=== PATIENT | female | born 1990 | race Caucasian/White ===

== ENCOUNTER 2016-06-27 23:45 | Emergency (ER) | payer BC, MEDICAID ==
[2016-06-28] MEDS ORDERED: BACIGUENT PACKET TP ONE (00:11)
[2016-06-28] MEDS ORDERED: Adacel Vial IM ONE ×2 (00:11→00:23)
[2016-06-28] MEDS ORDERED: XYLOCAINE 1% HCL 20 ML MDV IJ ONE (00:18)
--- NOTE | 2016-06-28 00:19 | ERPHSYRPT ---
- History of Present Illness Time Seen by Provider: 06/28/16 00:05 Source: patient Exam Limitations: no limitations Patient Subjective Stated Complaint: PT STS YESTERDAY NOTICED INCREASED SWELLING AND DISCOMFORT LT MIDDLE FINGER. STS TODAY STARTED DRAINING PUS. STS HAD SOME KEFLEX AT HOME SO SHE STARTED TAKING IT. STS TONIGHT SHE NOTICED SOME RED STREAKING UP THE LT ARM AND ALSO A LUMP AROUND LT COLLAR BONE AREA. Triage Nursing Assessment: PT ALERT, ORIENTED, ANSWERS ALL QUESTIONS APPROPRIATELY. SKIN P/W/D, RESPS NON-LABORED. PT AMBULATORY, GAIT STEADY. REDNESS WITH LOCALIZED SWELLING NOTED AROUND NAIL BED LT MIDDLE FINGER. LIGHT RED STREAKING NOTED UP LT ARM. SWELLING OF POSSIBLE LYMPH NODE NOTED AT LT COLLAR BONE AREA. Physician History: This is a 26-year-old white female arrives with complaint of erythema and pain in her left third finger symptoms for 2 days she states that she feels like she noticed erythema running up her dorsal left wrist she has some pain in her medial anterior elbow and states she has some tenderness in her left superior clavicular area. Past medical history:, Kidney stones Past surgical history includes 2 Occurred: days ago (2 days) Method of Injury: unknown Quality: constant Severity of Pain-Max: moderate Severity of Pain-Current: moderate Extremities Pain Location: 3rd finger: left Modifying Factors: Improves With: nothing Associated Symptoms: other (red streak on dorsal hand earlier today (left) pain in the left supraclavicular node, left medial elbow) Allergies/Adverse Reactions: No Known Drug Allergies Allergy (Unverified 06/28/16 00:16) Home Medications: Control 1 tab 06/28/16 [History] Hx Tetanus, Diphtheria Vaccination/Date Given: Yes (WITHIN LAST 10 YEARS) Hx Influenza Vaccination/Date Given: No Hx Pneumococcal Vaccination/Date Given: No Immunizations Up to Date: No - Review of Systems Constitutional: No Fever, No Chills Eyes: No Symptoms Ears, Nose, & Throat: No Symptoms Respiratory: No Cough, No Dyspnea Cardiac: No Chest Pain, No Edema, No Syncope Abdominal/Gastrointestinal: No Abdominal Pain, No Nausea, No Vomiting, No Diarrhea Genitourinary Symptoms: No Dysuria Musculoskeletal: Other (pain left distal third finger with erythema and drainage) Skin: Other (erythema distal left third finger dorsally red streak earlier dorsal left hand) Neurological: No Dizziness, No Focal Weakness, No Sensory Changes Psychological: No Symptoms Endocrine: No Symptoms All Other Systems: Reviewed and Negative - Past Medical History Pertinent Past Medical History: No - Past Surgical History Past Surgical History: Yes Other Surgical History: X 2 - Social History Smoking Status: Current every day smoker Exposure to second hand smoke: No Drug Use: none Patient Lives Alone: No - Female History Hx Last Menstrual Period: 1 MONTH AGO - Nursing Vital Signs Nursing Vital Signs: Initial Vital Signs Temperature 98.3 F Temperature Source Oral Pulse Rate 107 Respiratory Rate 16 Blood Pressure 139/80 Pain Intensity 5 - Physical Exam General Appearance: alert Eyes, Ears, Nose, Throat Exam: moist mucous membranes Neck Exam: normal inspection Cardiovascular/Respiratory Exam: chest non-tender, normal breath sounds, regular rate/rhythm, no respiratory distress Abdominal Exam: non-tender, No guarding Back Exam: normal inspection, No vertebral tenderness Shoulder Exam: normal inspection, non-tender, no evidence of injury, normal ROM Elbow/Forearm Exam: normal inspection, non-tender, no evidence of injury, normal ROM Wrist Exam: normal inspection, non-tender, no evidence of injury, normal ROM Hand Exam: no evidence of injury, normal ROM, No normal inspection (patient with erythema dorsal left distal third finger small amount of yellow drainage from under proximal nailbed home [facility] ASPECT) DTR - Upper Extremity Exam: tricep (R): 2+, tricep (L): 2+ Neuro/Tendon Exam: normal sensation, normal motor functions Mental Status Exam: alert, oriented x 3, cooperative Skin Exam: other (ERYTHEMA DISTAL LEFT THIRD FINGER DORSALLY at proximal portion of nail fold with yellow drainage) SpO2 Interpretation: normal SpO2: 98 Oxygen Delivery: Room Air - Course Nursing assessment & vital signs reviewed: Yes Ordered Tests: Active Orders 24 hr Category Date Time Status Wound Care STAT Care 06/28/16 00:11 Active CULTURE,WOUND Stat Lab 06/28/16 00:13 Ordered Medication Summary Discontinued Medications Generic Name Dose Route Start Last Admin Trade Name Jose PRN Reason Stop Dose Admin Bacitracin 0.9 gm 06/28/16 00:11 Baciguent Packet TP 06/28/16 00:12 STAT ONE Bacitracin Confirm 06/28/16 00:20 Baciguent Packet Administered 06/28/16 00:21 Dose 1 gm .ROUTE .STK-MED ONE Diphtheria/Tetanus/Acell Pertussis 0.5 ml 06/28/16 00:11 Adacel Vial IM 06/28/16 00:12 .ONCE ONE Diphtheria/Tetanus/Acell Pertussis Confirm 06/28/16 00:23 Adacel Vial Administered 06/28/16 00:24 Dose 0.5 ml IM .STK-MED ONE Lidocaine HCl 5 ml 06/28/16 00:18 Xylocaine 1% Hcl 20 Ml Mdv IJ 06/28/16 00:19 STAT ONE Lidocaine HCl Confirm 06/28/16 00:20 Xylocaine 1% Hcl 20 Ml Mdv Administered 06/28/16 00:21 Dose 1 ml .ROUTE .STK-MED ONE - Progress Progress: improved Progress Note: 06/28/16 00:37 Incision and drainage paronychia left third finger. Left third finger sterilely cleansed by the patient's nurse. Anesthesia achieved with 1% lidocaine locally. The lateral aspect of the proximal nail fold was elevated using forceps with production of yellow. Discharge which was cultured. Finger was cleansed again by nurse. - Departure Time of Disposition: 00:38 Departure Disposition: Home Clinical Impression: PARONYCHIA LEFT THIRD FINGER, Encounter for incision and drainage procedure Condition: Fair Critical Care Time: No Additional Instructions: Clean area and apply bacitracin daily. Bactrim DS one orally twice a day for 10 days. Keflex 500 mg orally 3 times a day for 10 days. [place] 5/325 #12 one orally every 4-6 hours as needed for pain. Follow-up with your family doctor if symptoms no better in 48 hours worse or persist longer than 72 hours. Return for acute distress or for severe symptoms. [employer] Prescriptions: Cephalexin Mh 500 mg [Keflex 500 mg] 500 mg PO TID #30 capsule Hydrocodone Bit/Acetaminophen [[place] 5/325Mg] 1 tab PO Q4-6HPRN PRN #12 tablet PRN Reason: Pain Sulfamethoxazole/Trimethoprim [Bactrim Ds Tablet] 1 tab PO BID #20 tablet
[2016-06-28] MEDS ORDERED: BACIGUENT PACKET ONE (00:20)
[2016-06-28] MEDS ORDERED: XYLOCAINE 1% HCL 20 ML MDV ONE (00:20)
[2016-06-28] MEDS ORDERED: NORCO 5/325 MG PO ONE (00:36)
[2016-06-28] MEDS ORDERED: BACTRIM DS TABLET PO ONE ×2 (00:36→00:47)
[2016-06-28] MEDS ORDERED: NORCO 5/325 MG ONE (00:47)
[2016-06-28 01:06] VITALS: BP 142/87; PULSE 100; O2SAT 96
== END 2016-06-28 01:12 | disposition home or self-care (01) ==
LOC: ED 23:45
PROC: 0H9GXZZ Drainage of Left Hand Skin, External Approach (ICD-10-PCS; principal; 2016-06-28)
DX: L03.012 Cellulitis of left finger (principal)
CPT/HCPCS: 17999; 87070; 87077; 87186; 90715; 99283